=== PATIENT | male | born 1940 ===

== ENCOUNTER 2022-03-01 11:37 | Day surgery (SDC) | payer MEDICARE, OTHER ==
[~2022-03-01] VITALS: Ht 175.3 cm; Wt 91.3 kg
[2022-03-01] VITALS (13 sets, daily range): BP systolic 115–198; BP diastolic 40–102; PULSE 50–98; TEMP 97.6–98.6
[2022-03-01] MEDS ORDERED: ASPIRIN E.C. 8181 MG PO (12:22)
[2022-03-01] MEDS ORDERED: LIPITOR 80MG80 MG PO (12:23)
[2022-03-01] MEDS ORDERED: PLAVIX 75MG TAB75 MG PO (12:23)
[2022-03-01] MEDS ORDERED: FARXIGA5 PO (12:24)
[2022-03-01] MEDS ORDERED: CELEXA10 MG PO (12:25)
[2022-03-01] MEDS ORDERED: IRON TABLETS325 MG PO (12:25)
[2022-03-01 12:26] LABS: MEAN CELL VOLUME 96 fl (80.0-100.0); MEAN CORPUSCULAR HGB CONC 33 g/dl (33.0-37.0); MEAN PLATELET VOLUME 10.9 fl (7.4-10.4); PLATELET COUNT 183 K/mm3 (130-400); RED BLOOD COUNT 2.97 M/mm3 (4.20-5.60); REDCELL DISTRIBUTION WIDTH-CV 15.9 % (11.5-14.5)
[2022-03-01] MEDS ORDERED: ONE-A-DAY ESSE1 EACH PO (12:26)
[2022-03-01 12:27] LABS: HEMATOCRIT 28.6 % (42.0-52.0); HEMOGLOBIN 9.4 g/dl (13.5-18.0); MEAN CORPUSCULAR HEMOGLOBIN 32 pg (27-31)
[2022-03-01] MEDS ORDERED: METAMUCIL MUL0.52 GM PO (12:27)
[2022-03-01 12:28] LABS: PARTIAL THROMBOPLASTIN TIME 31.8 SECONDS (26.0-37.0)
[2022-03-01] MEDS ORDERED: COLACE 100100 MG/CAP PO (12:28)
[2022-03-01] MEDS ORDERED: FLOMAX 0.40.4 MG/CAP PO (12:28)
[2022-03-01] MEDS ORDERED: ALDACTONE 25MG25 M1 PO (12:28)
[2022-03-01] MEDS ORDERED: LOPRESSOR 225 MG/TAB PO (12:31)
[2022-03-01] MEDS ORDERED: NATURAL MAGNES200 MG PO (12:31)
[2022-03-01] MEDS ORDERED: PROTONIX 40MG T40 MG PO (12:32)
[2022-03-01] MEDS ORDERED: ISORDIL 10MG10 MG PO (12:37)
[2022-03-01] MEDS ORDERED: FLORASTOR250 MG PO (12:39)
[2022-03-01] MEDS ORDERED: LASIX 80MG TABL80 MG PO (12:39)
[2022-03-01 12:57] LABS: CALCIUM 8.8 mg/dL (8.4-10.2); CREATININE, serum 2.93 mg/dL (0.72-1.25); POTASSIUM 3.2 mmol/L (3.5-4.5)
[2022-03-01] MEDS ORDERED: ALBUTEROL0.83 MG/ML IH (13:30)
[2022-03-01] MEDS ORDERED: MELATIN 3 MG-11 TAB PO (13:30)
--- NOTE | 2022-03-01 13:59 | NUR ---
SEE MERGE FOR ALL MEDICATION ADMNISTRATION TIMES, INTRA AND POST SEDATION ASSESSMENTS
--- NOTE | 2022-03-01 15:15 | NUR ---
The patient arrived from laboratory inspector with MENDEZ Ling. The patient is awake and alert, family is accompanying him at this time. Lesia *daughter* and the patient's are at bedside. Handoff assessment completed. MENDEZ Ling showed this RN the hematoma and the intervention of a second TR bad with 12cc air inflation to place pressure on the hematoma. There is mild edema above second TR band with significant ecchymosis, but it is soft at this time. The patient's VS are stable at this time. No other concerns.
--- NOTE | 2022-03-01 16:00 | NUR ---
THIS RN WAS NOTIFIED THAT THE PATIENT WAS HAVING DIFFICULTY BREATHING. UPON ENTRY THE PATIENT IS HYPERTENSIVE, HAVING SHALLOW UNEQUAL RESPIRATIONS WITH THE INSPIRATION LESS THAN EXPIRATION, HIS 02 SATURATIONS ARE DOWN TO 90% ON RA. THE PATIENT IS DENYING ANY CHEST PAIN, BUT STATES THAT HE FEELS LIKE HE CANNOT BREATHE. CONTINUING TO MONITOR THIS PATIENT.
--- NOTE | 2022-03-01 16:06 | NUR ---
TOOK PATIENT'S MANUAL BP TO CHECK IF THE PATIENT'S BLOOD PRESSURE IS HIGH THE DYNAMAP SUGGESTS. MANUAL BP IS 198/98. CONTACTED DR. BLACKWOOD AT THIS TIME. THE PATIENT IS NOW ON 10L OM DUE TO RAPID BREATHING, AND THE PATIENT SCERAMING HE CANNOT BREATHE AND SAYING "LORD TAKE ME HOME!" THE PATIENT'S HR IS NOT INCREASED AT THIS TIME, AND STILL THE PATIENT DENIES CHEST PAIN. DR. BLACKWOOD GAVE ORDERS AT THIS TIME FOR 1 MG VERSED, 40MG LASIX IV, 5MG NORVASC PO (REPEAT X1 FOR SYS >140 , 0.5 ATIVAN IV (REPEAT X1 FOR AGITATION), TRANSFER TO ICU, AFTER TRANSFER PLACE PATIENT ON A 10MCG NITRO DRIP.
--- NOTE | 2022-03-01 17:00 | NUR ---
THE PATIENT IS NOW CALM AND THE PANIC HAS RESOLVED, REDUCING THE AMOUNT OF O2 THE PATIENT REQUIRES. CONTACTED THE PATIENT'S DAUGHTER TERI WHO IS GOING TO COME AND STAY WITH THE PATIENT TONIGHT. NO OTHER CONCERNS AT THIS TIME.
--- NOTE | 2022-03-01 19:00 | NUR ---
[employer] PROJECT MANAGERCLOTH NEUTRALIZER RN AND THIS RN WHO RELEASED 12CC FROM THE SECOND BAND. THE HEMATOMA RAISED, AND THIS RN REPLACE THE 12CC BACK INTO THE SECOND BAND, AND THE CLOTH NEUTRALIZER NURSE DISCRETION TO LEAVE IN PLACE OR CONTACT PHYSICIAN FOR REMOVAL INSTRUCTIONS. NO OTHER CONCERNS.
[2022-03-01 19:29] LABS: BASO % 0.1 % (0.0-2.0); EOS % 0.1 % (0.0-4.0); GRAN # 5.5 K/mm3 (1.4-6.5); LYMPH # 0.9 K/mm3 (1.2-3.4); LYMPH % 12.6 % (20.0-51.0); MEAN CELL VOLUME 95 fl (80.0-100.0); MEAN CORPUSCULAR HGB CONC 33 g/dl (33.0-37.0); MEAN PLATELET VOLUME 11.3 fl (7.4-10.4); MONO # 0.5 K/mm3 (0.1-0.6); MONO % 6.9 % (1.7-9.3); PLATELET COUNT 190 K/mm3 (130-400); RED BLOOD COUNT 3.19 M/mm3 (4.20-5.60)
[2022-03-01 19:32] LABS: HEMATOCRIT 30.4 % (42.0-52.0); HEMOGLOBIN 9.9 g/dl (13.5-18.0); MEAN CORPUSCULAR HEMOGLOBIN 31 pg (27-31)
[2022-03-01 19:40] LABS: ALBUMIN 3.4 gm/dL (3.4-4.8); BILIRUBIN,TOTAL 1.1 mg/dL (0.2-1.2); CALCIUM 8.7 mg/dL (8.4-10.2); CREATININE, serum 2.89 mg/dL (0.72-1.25); TOTAL PROTEIN 7.1 gm/dL (6.2-8.1)
[2022-03-01 19:45] LABS: POTASSIUM 2.9 mmol/L (3.5-4.5)
--- NOTE | 2022-03-01 22:54 | NUR ---
Tx given via mask, tolerated well. Family X 1 at bedside.
[2022-03-02 00:16] VITALS: BP 127/62; PULSE 48; TEMP 98.5
[2022-03-02 04:15] VITALS: BP 149/94; PULSE 74; TEMP 98.6
--- NOTE | 2022-03-02 04:51 | NUR ---
PATIENT HAD GOOD START OF SHIFT. HS MEDS TOLERATED WITHOUT ISSUE. CALL WAS PLACED TO FOR VERIFICATION OF TR BANDS, ORDER TO LEAVE THEM ON LONG DISTAL PULSES ARE POSITIVE. BANDS REMAINED ON THROUGHOUT ENTIRETY OF SHIFT. AROUND 0300 PATIENT CALLED OUT ANXIOUS AND HAVING PANIC ATTACK, CALL TO SYD RODAS, AND PRN ATIVAN ORDERED AND GIVEN. STARTED ON 5 L O2 VIA OXYMASK AT THIS TIME. ADDITIONAL ORDER TO REMOVE EXTERNAL CATH AND INSERT METCALF. ATTEMPTED METCALF INSERTION BY THIS NURSE AND GLADIS SIMMS ASSISTANCE BUT CATHETER KEPT COILING. POSSIBLE NEED FOR COUDE CATH. PATIENT X2 ASSIST TO BEDSIDE COMMODE AND HAD LARGE FORMED BM. RETURNED TO BED AND PATIENT REQUESTED FOOD, TOLERATED PUDDING CUP AND ICECREAM AT THIS TIME. PATIENT IS CURRENTLY RESTING IN BED. CALL LIGHT IN REACH. DAUGHTER AT BEDSIDE.
[2022-03-02 06:52] LABS: BASO % 0.2 % (0.0-2.0); GRAN # 7.3 K/mm3 (1.4-6.5); GRAN % 85.5 % (42.2-75.2); LYMPH # 0.7 K/mm3 (1.2-3.4); LYMPH % 7.7 % (20.0-51.0); MEAN CELL VOLUME 95 fl (80.0-100.0); MEAN CORPUSCULAR HGB CONC 33 g/dl (33.0-37.0); MEAN PLATELET VOLUME 11.3 fl (7.4-10.4); MONO # 0.6 K/mm3 (0.1-0.6); MONO % 6.4 % (1.7-9.3); PLATELET COUNT 168 K/mm3 (130-400); RED BLOOD COUNT 2.92 M/mm3 (4.20-5.60); REDCELL DISTRIBUTION WIDTH-CV 16.3 % (11.5-14.5)
[2022-03-02 06:57] LABS: HEMATOCRIT 27.6 % (42.0-52.0); HEMOGLOBIN 9.1 g/dl (13.5-18.0); MEAN CORPUSCULAR HEMOGLOBIN 31 pg (27-31)
[2022-03-02 07:40] LABS: CALCIUM 8.6 mg/dL (8.4-10.2); CREATININE, serum 2.93 mg/dL (0.72-1.25); POTASSIUM 3.1 mmol/L (3.5-4.5)
[2022-03-02 07:42] VITALS: BP 111/47; PULSE 75; TEMP 97.8
[2022-03-02 08:00] VITALS: BP 111/47; PULSE 75; TEMP 97.8
--- NOTE | 2022-03-02 10:07 | NUR ---
ERIKA contacted the patient's daughter, Lesai Washington (ph#[phone]), to discuss discharge plan. The patient has been residing at [facility] for a skilled stay. He was living in the independent living apartments at [facility] with his , Echo (ph#[phone]), before skilled. The patient's PCP is Dr. Karen Esquivel. The patient does not have a DPOA-HC. Lesia states that the patient has not been able to sign a DPOA-HC yet, due not not being coherent enough. Lesia confirms that the patient is still to Echo and that Echo is of sound mind. The patient then has four children. Lesia states that the plan is for the patient to return back to [facility] to resume his skilled stay upon discharge. The patient's RN notified ERIKA that the clinical team may be ready to discharge the patient later today. ERIKA informed Lesia of this. ERIKA attempted to notify Susu at [facility]. ERIKA left her a voicemail and faxed over updates. *Discharge plan: [facility]*
--- NOTE | 2022-03-02 10:17 | NUR ---
2 ml of air released from both TR radial bands per cardiology orders. potassium replaced. DA and PT educated on s/s of bleeding from sites. will reassess TR band.
[2022-03-02] MEDS ORDERED: BRILINTA90 MG PO (10:42)
[2022-03-02] MEDS ORDERED: IMDUR 30MG30 MG/TAB PO (10:42)
[2022-03-02] MEDS ORDERED: JARDIANCE10 PO (10:43)
[2022-03-02 11:29] VITALS: BP 122/43; PULSE 73; TEMP 98.4
--- NOTE | 2022-03-02 11:38 | NUR ---
3ML AIR REMOVED FROM BOTH R RADIAL TR BANDS. HEMATOMA FIRM UNDER SECOND BAND BUT SKIN SOFT PROXIMAL AND DISTAL TO THE BAND. LASIX IV MEDICATION VERIFIED WITH TEAJS DE OLIVEIRA. TEJAS ALSO WANTED STAFF TO WALK PT WITH PULSE OX.
--- NOTE | 2022-03-02 11:54 | NUR ---
The patient is to discharge today, 03/02, back to [facility] to resume his skilled stay. Transportation was scheduled at 1500, via [facility]. SW informed the patient's daughter (Lesia) and the RN of the time. No additional needs at this time.
--- NOTE | 2022-03-02 12:20 | NUR ---
Patient walked from his room down to room 353 and back to patients room. Patient ambulated with personal walker and gait belt. Pulse oximetry captured patients oxygen between 94-96. Patient did tolerate walk well, he did need to stop once to sit due to his left toe aching. After short break patient was able to complete walk with no pain or distress. Patient is now sitting in patient room recliner. Daughter is at bedside.
[2022-03-02 12:47] VITALS: BP 122/43; PULSE 73; TEMP 98.4
--- NOTE | 2022-03-02 12:52 | NUR ---
both bands fully deflated at this time. site soft.
--- NOTE | 2022-03-02 13:35 | NUR ---
TR BANDS REMOVED FROM PT WRIST. HEMATOMA SITE IS NOT BECOMING MORE FIRM OR CHANGING. BRUISING TO SITE. PT REPORTS "I DON'T FEEL RIGHT". PT DENIES CHEST PAIN, N/V/D, DIZZINESS/LIGHTHEADEDNESS. JUST REPORTS "I JUST FEEL SICK". DA AT BEDSIDE REPORTING HE WAS GETTING ANXIOUS.
--- NOTE | 2022-03-02 15:08 | NUR ---
site soft to palpation. ecchymosis present, int removed, pt escorted out wtih paperwork and pt belongings.
--- NOTE | 2022-03-02 15:18 | NUR ---
Reviewed phase 1 Cardiac rehab education with patient - s/x of NV, risk factor modification, and scheduling cardiac rehab. CHF education review was also conducted. Patient verbalized understanding of all topics. Patient's daughter was also present. Patient is from [place]. Referral faxed to [facility] with patient permission.
== END 2022-03-02 15:20 ==
LOC: COL.CAR 11:37 → MEDICAL 18:02 → COL.CAR 03-02 15:20
PROVIDERS: Internal Medicine Cardiovascular Disease
DX: I25.10 Atherosclerotic heart disease of native coronary artery without angina pectoris (principal); R94.39 Abnormal result of other cardiovascular function study; E78.2 Mixed hyperlipidemia; I42.9 Cardiomyopathy, unspecified; I13.0 Hypertensive heart and chronic kidney disease with heart failure and stage 1 through stage 4 chronic kidney disease, or unspecified chronic kidney disease; E11.22 Type 2 diabetes mellitus with diabetic chronic kidney disease; N18.9 Chronic kidney disease, unspecified; I50.9 Heart failure, unspecified; K21.9 Gastro-esophageal reflux disease without esophagitis; J44.9 Chronic obstructive pulmonary disease, unspecified; F32.A Depression, unspecified; I48.91 Unspecified atrial fibrillation; Z79.01 Long term (current) use of anticoagulants; Z79.02 Long term (current) use of antithrombotics/antiplatelets; Z87.891 Personal history of nicotine dependence; Z79.82 Long term (current) use of aspirin; Z79.84 Long term (current) use of oral hypoglycemic drugs; Z79.899 Other long term (current) drug therapy; Z66 Do not resuscitate
CPT/HCPCS: OP; 99222; A9270; C1725; C1769; C1874; C1887; C9600; J0583; J1644; J1940; J2060; J2250; J2405; J3010